=== PATIENT | male | born 2000 | race Caucasian/White ===

== ENCOUNTER 2020-06-07 18:16 | Emergency (ER) | payer MEDICAID, SELFPAY ==
[~2020-06-07] VITALS: Ht 175.3 cm; Wt 104.3 kg
[~2020-06-07 18:16] MED LIST: CIPR500T4 PO; HYDR-5122 PO
[2020-06-07 18:18] VITALS: BP 113/67
--- NOTE | 2020-06-07 18:36 | NUR ---
19 Y/O M C/C REDNESS ON UPPER ABDOMINAL AREA X 1 DAY. PER PT GALLBLADDER STONE REMOVAL SX ON THE April. PER PT NOTICED REDNESS/PUS ON THE AREA, FINISHED ALL ABX GIVEN, PAIN 5/10. ON ASSESSMENT REDNESS NOTED ON STITCHES AREA, NO DRAINAGE SEEN. PT NKA. NO HX. NO RX. NO NVD. SIDE RAIL X1.
--- NOTE | 2020-06-07 19:18 | NUR ---
REPORT GIVEN TO KIANA TOTH FOR CONTINUITY OF CARE
[2020-06-07 19:42] VITALS: BP 113/67
== END 2020-06-07 19:42 | disposition home or self-care (01) ==
LOC: MED 18:16
DX: L29.9 Pruritus, unspecified (principal); F17.290 Nicotine dependence, other tobacco product, uncomplicated; Z48.01 Encounter for change or removal of surgical wound dressing; Z79.899 Other long term (current) drug therapy; Z90.49 Acquired absence of other specified parts of digestive tract
CPT/HCPCS: 99283

== ENCOUNTER 2020-06-14 13:55 | Emergency (ER) | payer MEDICAID, SELFPAY ==
[~2020-06-14] VITALS: Ht 177.8 cm; Wt 104.3 kg
[2020-06-14 13:59] VITALS: BP 93/51
--- NOTE | 2020-06-14 14:18 | NUR ---
Ariel hughes in ED - 06/14/20 at 1638 by MEDAD Patient discharged with v/s stable. Written and verbal after care instructions given and explained. Patient verbalized understanding. Ambulatory with steady gait. All questions addressed prior to discharge. Advised to follow up with PMD.
--- NOTE | 2020-06-14 14:19 | NUR ---
BIB SELF FOR WOUND CHECK S/P GALL BLADDER REMOVAL 05/14/20. SEEN HERE 06/07/20 FOR PUS IN STITCHES. WOUND CLEAN & DRY AT THIS TIME.PT AOX4, AFIBRILE , AMBULATORY WITH STEADY GAIT , CLEAN INTACT WOUND. MED HX: GALL BLADDER REMOVAL
--- NOTE | 2020-06-14 14:20 | NUR ---
DR MARTINEZ AT BEDSIDE EVALUATING PT.
--- NOTE | 2020-06-14 14:28 | NUR ---
Patient discharged with v/s stable. Written and verbal after care instructions given and explained. Patient verbalized understanding. Ambulatory with steady gait. All questions addressed prior to discharge. Advised to follow up with PMD.
[2020-06-14 14:32] VITALS: BP 93/51
== END 2020-06-14 14:28 | disposition home or self-care (01) ==
LOC: MED 13:55
DX: N39.0 Urinary tract infection, site not specified (principal); Z90.49 Acquired absence of other specified parts of digestive tract; Z79.899 Other long term (current) drug therapy
CPT/HCPCS: 99281

== ENCOUNTER 2021-11-17 11:44 | Emergency (ER) | payer MEDICAID, SELFPAY ==
[~2021-11-17] VITALS: Ht 180.3 cm; Wt 104.1 kg
[2021-11-17 11:53] VITALS: BP 145/65
--- NOTE | 2021-11-17 12:00 | NUR ---
PT TO ABIODUN VALENZUELA
--- NOTE | 2021-11-17 12:16 | NUR ---
SWAB SENT TO LAB
[2021-11-17] MEDS ORDERED: ONDA-188 PO (12:30)
[2021-11-17] MEDS ORDERED: NAPR-1704 PO (12:30)
[2021-11-17 12:50] VITALS: BP 145/73
--- NOTE | 2021-11-17 12:51 | NUR ---
Patient discharged with v/s stable. Written and verbal after care instructions given SINUSITIS and explained. Patient alert, oriented and verbalized understanding of instructions. Ambulatory with steady gait. All questions addressed prior to discharge. ID band removed. Patient advised to follow up with PMD. Rx of NAPROXEN AND ZOFRAN given. Patient educated on indication of medication including possible reaction and side effects. Opportunity to ask questions provided and answered.
== END 2021-11-17 12:51 | disposition home or self-care (01) ==
LOC: MED 11:44
DX: R51.9 Headache, unspecified (principal); Z20.822 Contact with and (suspected) exposure to COVID-19; R42 Dizziness and giddiness; Z79.899 Other long term (current) drug therapy; Z90.49 Acquired absence of other specified parts of digestive tract
CPT/HCPCS: 99283

== ENCOUNTER 2024-04-12 04:40 | Emergency (ER) | payer SELFPAY ==
[~2024-04-12] VITALS: Ht 177.8 cm; Wt 104.3 kg
[~2024-04-12 04:40] MED LIST changes: -CIPR500T4 PO; -HYDR-5122 PO; +NAPR-1704 PO; +ONDA-188 PO
[2024-04-12 04:51] VITALS: BP 136/68; PULSE 98; RESP 16; TEMP 97.7; O2SAT 99
[2024-04-12 05:03] VITALS: O2SAT 98
[2024-04-12] MEDS ORDERED: ACET-10509 PO (05:05)
[2024-04-12] MEDS ORDERED: IBUP-2218 PO (05:05)
[2024-04-12] MEDS ORDERED: AMOX1TAB8 PO (05:05)
[2024-04-12 05:07] VITALS: BP 123/76; PULSE 96; RESP 18; TEMP 97.9; O2SAT 97
== END 2024-04-12 05:07 | disposition home or self-care (01) ==
LOC: MED 04:40
DX: H66.92 Otitis media, unspecified, left ear (principal); R51.9 Headache, unspecified; Z79.899 Other long term (current) drug therapy
CPT/HCPCS: 99283